=== PATIENT | male | born 1955 | race Caucasian/White ===

== ENCOUNTER 2018-08-25 15:17 | Outpatient (CLI) | payer OTHER ==
--- NOTE | 2018-08-28 10:45 | CT ---
CT HEART WITHOUT CONTRAST: CALCIUM SCORING: HISTORY: Screening for coronary artery disease. Family history of heart disease. High cholesterol. FINDINGS: TOTAL CALCIUM SCORE USING THE AJ-130 METHOD: 142 LEFT MAIN: 0 RCA: 59 LAD: 52 LCX: 31 The visualized lung carver are unremarkable. No pleural or pericardial effusions are seen. There ar e degenerative changes in the spine. IMPRESSION: Total calcium score is 142. IMPLICATION: Definite, at least moderate, atherosclerotic plaque. RISK OF CORONARY ARTERY DISEASE: Mild coronary artery disease highly likely, significant narrowing is possible. POS: OFF
== END 2018-08-25 15:18 | disposition home or self-care (01) ==
LOC: BICCT 15:17
PROVIDERS: ATTEND Internal Medicine Cardiovascular Disease
DX: Z72.4 Inappropriate diet and eating habits (principal); I25.10 Atherosclerotic heart disease of native coronary artery without angina pectoris
CPT/HCPCS: 75571